=== PATIENT | female | born 1995 | race Caucasian/White ===

== ENCOUNTER 2017-03-01 00:17 | Emergency (ER) | payer BC ==
[2017-03-01] MEDS ORDERED: methylPREDNISolone Sod Succ/PF 125 MG/2 ML VIAL ONE (00:25)
[2017-03-01] MEDS ORDERED: Famotidine/PF 20 mg/2ml Vial ONE (00:26)
[2017-03-01] MEDS ORDERED: Water For Inject, Bacteriostat 30 ML ONE (00:26)
== END 2017-03-01 01:15 | disposition home or self-care (01) ==
LOC: ERS 00:17
DX: T63.481A Toxic effect of venom of other arthropod, accidental (unintentional), initial encounter (principal); L50.9 Urticaria, unspecified; F17.200 Nicotine dependence, unspecified, uncomplicated
CPT/HCPCS: 94760; 96361; 96374; 96375; J2930; S0028